=== PATIENT | female | born 1935 | race Caucasian/White ===

== ENCOUNTER → 2020-09-11 | Day surgery (SDC) | payer MEDICARE ==
[~2020-09-11] MED LIST: ASPIRIN EC81 M1 PO; BONIVA 150MG T150 MG PO; DAILY VALUE1 EACH PO; LOVASTATIN20 MG PO; LOVAZA1 GM PO; NORCO 5-325 TA1 EACH PO; NORVASC2.5 MG PO; OSTEO BI-FLEX1 EAC1 PO; PROBIOTIC1 EAC1 PO; TURMERIC500 M1 PO; VISION VITAMIN1 EACH PO; VITAMIN B122500 MCG PO
[2020-09-11 08:06] LABS: BUN/CREAT RATIO (CALC) 30.2 RATIO; CREATININE 0.63 mg/dL (0.51-0.95); POTASSIUM 4.8 mmol/L (3.5-5.1)
== END | disposition home or self-care (01) ==
LOC: FAS 06:59
PROVIDERS: Anesthesiology
DX: K80.64 Calculus of gallbladder and bile duct with chronic cholecystitis without obstruction (principal); K76.89 Other specified diseases of liver; K21.9 Gastro-esophageal reflux disease without esophagitis; M85.80 Other specified disorders of bone density and structure, unspecified site; I10 Essential (primary) hypertension; M81.0 Age-related osteoporosis without current pathological fracture; Z79.82 Long term (current) use of aspirin; Z79.899 Other long term (current) drug therapy; Z88.0 Allergy status to penicillin; Z88.2 Allergy status to sulfonamides; Z88.5 Allergy status to narcotic agent; Z88.8 Allergy status to other drugs, medicaments and biological substances
CPT/HCPCS: 36415; 80048; J1956; J2704; J2710; J3010

== ENCOUNTER → 2021-08-12 | Day surgery (SDC) | payer MEDICARE ==
[~2021-08-12] VITALS: Ht 165.1 cm; Wt 61.2 kg
[2021-08-12 08:08] LABS: ALBUMIN 3.8 g/dL (3.4-5.0); BILIRUBIN - TOTAL 1.2 mg/dL (0.2-1.0); CREATININE 0.61 mg/dL (0.51-0.95); GLOBULIN (CALCULATION) 3.1 g/dL; POTASSIUM 3.4 mmol/L (3.5-5.1); TOTAL PROTEIN 6.9 g/dL (6.4-8.2)
== END | disposition home or self-care (01) ==
LOC: FAS 07:01
PROVIDERS: Surgery
DX: D12.2 Benign neoplasm of ascending colon (principal); K57.30 Diverticulosis of large intestine without perforation or abscess without bleeding; G89.29 Other chronic pain; R10.31 Right lower quadrant pain; I10 Essential (primary) hypertension; Z88.0 Allergy status to penicillin; Z88.1 Allergy status to other antibiotic agents; Z88.2 Allergy status to sulfonamides; Z88.8 Allergy status to other drugs, medicaments and biological substances; Z79.82 Long term (current) use of aspirin; Z79.899 Other long term (current) drug therapy; Z90.710 Acquired absence of both cervix and uterus
CPT/HCPCS: 36415; 80053; 82150; 83690; J1610; J2704; J7120

== ENCOUNTER → 2021-12-24 | Day surgery (SDC) | payer MEDICARE ==
[~2021-12-24] VITALS: Ht 165.1 cm; Wt 61.2 kg
[~2021-12-24] MED LIST changes: +VITAMIN D325 MC4 PO
[2021-12-24 11:25] LABS: ALBUMIN 4.3 g/dL (3.4-5.0); BILIRUBIN - TOTAL 0.8 mg/dL (0.2-1.0); BUN/CREAT RATIO (CALC) 17.7 RATIO; CREATININE 0.62 mg/dL (0.51-0.95); GLOBULIN (CALCULATION) 3.6 g/dL; TOTAL PROTEIN 7.9 g/dL (6.4-8.2)
== END | disposition home or self-care (01) ==
LOC: FAS 10:00
PROVIDERS: Surgery
DX: D05.12 Intraductal carcinoma in situ of left breast (principal); N64.1 Fat necrosis of breast; D24.2 Benign neoplasm of left breast; N62 Hypertrophy of breast; D12.6 Benign neoplasm of colon, unspecified; E78.00 Pure hypercholesterolemia, unspecified; I10 Essential (primary) hypertension; Z90.710 Acquired absence of both cervix and uterus; Z79.82 Long term (current) use of aspirin
CPT/HCPCS: 36415; 71045; 76098; 77065; 80053; J1100; J1200; J1885; J2405; J2704; J3010

== ENCOUNTER → 2022-01-06 | Day surgery (SDC) | payer MEDICARE ==
[~2022-01-06] VITALS: Ht 165.1 cm; Wt 61.2 kg
[2022-01-06 11:02] LABS: BUN/CREAT RATIO (CALC) 18.2 RATIO; CREATININE 0.66 mg/dL (0.51-0.95); POTASSIUM 4.3 mmol/L (3.5-5.1)
== END | disposition home or self-care (01) ==
LOC: FAS 09:25
PROVIDERS: Anesthesiology
DX: D05.12 Intraductal carcinoma in situ of left breast (principal); I10 Essential (primary) hypertension; E78.5 Hyperlipidemia, unspecified; Z88.0 Allergy status to penicillin; Z88.1 Allergy status to other antibiotic agents; Z88.2 Allergy status to sulfonamides; Z88.8 Allergy status to other drugs, medicaments and biological substances; Z79.82 Long term (current) use of aspirin; Z79.899 Other long term (current) drug therapy
CPT/HCPCS: 36415; 80048; J2370; J2704; J3010; J7120; Q9968

== ENCOUNTER 2022-05-28 11:02 | Emergency (ER) | payer MEDICARE ==
[2022-05-28] MEDS ORDERED: MEDROL 4MG DOSEP4 MG PO (14:27)
== END 2022-05-28 14:20 | disposition home or self-care (01) ==
LOC: FER 11:02
DX: S39.012A Strain of muscle, fascia and tendon of lower back, initial encounter (principal); M51.36 Other intervertebral disc degeneration, lumbar region; I10 Essential (primary) hypertension; Z88.0 Allergy status to penicillin; X50.0XXA Overexertion from strenuous movement or load, initial encounter
CPT/HCPCS: 72128; 72131; J1100